=== PATIENT | female | born 1980 | race Caucasian/White ===

== ENCOUNTER 2017-05-22 13:33 | Inpatient (IN) | payer OTHER ==
[~2017-05-22] VITALS: Ht 157.5 cm; Wt 110.7 kg
[~2017-05-22 13:33] MED LIST: ALLEGRA30 MG; ASPIRIN325 PO; ASPIRIN81 M2; BIRTH CONTROL; CARVEDILOL12.5 MG PO; LIPITOR20 MG; MULTIVITAMINS PO; NITROSTAT0.4 MG SL; PLAVIX 75 MG TA75 MG PO; ZOLOFT 50 MG TA50 M1
[2017-05-22 13:41] VITALS: BP 150/76
[2017-05-22 14:15] LABS: ABSOLUTE BASOPHILS 0.1 thou/uL (0.0-0.2); ABSOLUTE EOSINOPHILS 0.2 thou/uL (0.0-0.7); ABSOLUTE LYMPHOCYTES 1.9 thou/uL (0.8-5.3); ABSOLUTE MONOCYTES 0.2 thou/uL (0.0-1.2); ABSOLUTE NEUTROPHILS 6.3 thou/uL (1.6-8.1); BASOPHILS 0.7 %; EOSINOPHILS 2.2 %; HEMATOCRIT 39.7 % (37.0-47.0); HEMOGLOBIN 13.5 gm/dL (12.0-15.0); LYMPHOCYTES 21.7 %; MCH 29.9 pg (26.0-34.0); MCHC 33.9 g/dL (28.0-37.0); MONOCYTES 2.8 %; MPV 7.6 fl. (7.2-11.1); NUCLEATED RBCS 0 /100WBC; PLATELET COUNT* 212 thou/uL (150-400); POLYS 72.6 %; RBC 4.51 mil/uL (4.20-5.00); RDW-CV 13.7 % (10.5-14.5); WBC 8.6 thou/uL (4.0-11.0)
[2017-05-22 14:25] LABS: CALCIUM 8.8 mg/dL (8.5-10.1); CREATININE 0.8 mg/dL (0.6-1.3)
[2017-05-22 14:29] LABS: ALBUMIN 3.5 g/dL (3.4-5.0); TOTAL BILIRUBIN 0.4 mg/dL (<0.1-1.0); TOTAL PROTEIN 7.2 g/dL (6.4-8.2)
[2017-05-22 14:34] LABS: SALICYLATE < 2.8 mg/dL (2.8-20.0)
[2017-05-22 14:35] LABS: ACETAMINOPHEN < 2 ug/mL (10-30); ALCOHOL < 10 mg/dL (<10)
[2017-05-22 14:36] LABS: MAGNESIUM 1.5 mg/dL (1.8-2.4); PHOSPHORUS* 3.4 mg/dL (2.5-4.9)
[2017-05-22 14:57] LABS: URINE BILIRUBIN NEGATIVE (Negative); URINE BLOOD NEGATIVE (Negative); URINE CLARITY CLEAR; URINE COLOR YELLOW; URINE GLUCOSE-RANDOM NEGATIVE (Negative); URINE KETONES NEGATIVE (Negative); URINE LEUKOCYTES-REFLEX NEGATIVE (Negative); URINE NITRITE-REFLEX NEGATIVE (Negative); URINE PROTEIN TRACE (Negative); URINE SPECIFIC GRAVITY 1.015 (1.005-1.030); URINE UROBILINOGEN 0.2 E.U./dl (0.2-1.0)
[2017-05-22 15:07] LABS: AMP/METHAMP Negative (Negative); BARBITURATES Negative (Negative); BENZODIAZEPINES POSITIVE (Negative); COCAINE Negative (Negative); METHADONE Negative (Negative); OPIATES Negative (Negative); PCP Negative (Negative); THC Negative (Negative)
[2017-05-22 16:15] VITALS: BP 131/88
[2017-05-22 16:30] VITALS: BP 138/87
[2017-05-22 17:59] VITALS: BP 136/94
[2017-05-22 20:00] VITALS: BP 127/83
[2017-05-22 22:00] VITALS: BP 116/71
[2017-05-23] VITALS (9 sets, daily range): BP systolic 101–136; BP diastolic 52–83
[2017-05-23 03:45] LABS: HEMATOCRIT 35.6 % (37.0-47.0); MCH 29.9 pg (26.0-34.0); MCHC 33.7 g/dL (28.0-37.0); MCV 88.8 fL (80.0-100.0); MPV 7.6 fl. (7.2-11.1); RBC 4.01 mil/uL (4.20-5.00); RDW-CV 13.8 % (10.5-14.5)
[2017-05-24 05:58] VITALS: BP 115/74
[2017-05-24 08:30] VITALS: BP 112/57
--- NOTE | 2017-05-24 12:52 | EKG ---
[place] [address] ELECTROCARDIOGRAM REPORT Name: JULIEN AYALA Room: [address] ADM IN M.R.#: [id number] Admission: 05/22/17 Attend Phys: Casi Alejandre Discharge: Date of : 76 Report #: [id number] THIS REPORT FOR: //name// [facility] ED Test Date: 2017-05-22 Test Time: 13:55:40 Pat Name: JULIEN AYALA Department: Room: 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1980 Requested By: Brooks Garcia Order Number: [id number] MD: Randy Gleason Measurements Intervals [place] Rate: 116 P: 52 VT: 143 QRS: -32 QRSD: 91 T: 41 QT: 323 QTc: 449 Interpretive Statements Sinus tachycardia RSR' in V1 or V2, probably normal variant Inferior infarct, old Consider anterior infarct Compared to ECG 06/19/2012 10:08:03 RSR' in V1 or V2 now present Sinus rhythm no longer present Myocardial infarct finding still present Electronically Signed On 05-24-2017 12:52:16 [employer]IMINAL JUSTICE DEPARTMENT CHAIR by Randy Gleason [email or web address] <ELECTRONICALLY SIGNED> By: Randy Gleason MD, FACC 05/24/17 1252 1355 1355 Randy Gleason MD, FACC /EPI
--- NOTE | 2017-05-24 12:52 | EKG ---
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1980 Requested By: Julio Cesar Khan Order Number: [id number] Darvin MD: Randy Gleason Measurements Intervals [place] Rate: 110 P: 47 CO: 144 QRS: -32 QRSD: 91 T: 42 QT: 341 QTc: 462 Interpretive Statements Sinus tachycardia Inferior infarct, old Anterior infarct, old Baseline wander in lead(s) I,II,aVR,V1,V4,V5,V6 Compared to ECG 06/19/2012 10:08:03 Sinus rhythm no longer present Myocardial infarct finding still present Electronically Signed On 05-24-2017 12:52:00 PLASTIC PROCESS TECHNICIAN by Randy Gleason [email or web address] <ELECTRONICALLY SIGNED> By: Randy Gleason MD, FACC 05/24/17 1252 1352 1352 Randy Gleason MD, FAC /EPI
[2017-05-24 16:30] VITALS: BP 146/93
[2017-05-24 20:05] VITALS: BP 146/93
== END 2017-05-24 19:57 | disposition short-term general hospital (02) | DRG 918 ==
LOC: M.ERS 13:33 → M.TBA-ER 15:42 → M.2W 15:42 → M.ICU 16:02 → M.2W 05-23 10:15
PROVIDERS: Emergency Medicine Emergency Medical Services; ADMIT Internal Medicine
DX: T42.4X2A Poisoning by benzodiazepines, intentional self-harm, initial encounter (principal); T43.222A Poisoning by selective serotonin reuptake inhibitors, intentional self-harm, initial encounter; I45.81 Long QT syndrome; E83.42 Hypomagnesemia; F32.9 Major depressive disorder, single episode, unspecified; Y92.89 Other specified places as the place of occurrence of the external cause; Z98.891 History of uterine scar from previous surgery; I25.2 Old myocardial infarction; Z91.018 Allergy to other foods

== ENCOUNTER 2017-07-08 07:13 | Emergency (ER) | payer OTHER ==
[~2017-07-08] VITALS: Ht 157.5 cm; Wt 108.9 kg
[2017-07-08] MEDS ORDERED: SERTRALINE HCL50 MG PO (07:21)
[2017-07-08] MEDS ORDERED: BUSPIRONE HCL10 MG PO (07:21)
[2017-07-08 07:36] LABS: ABSOLUTE BASOPHILS 0.1 thou/uL (0.0-0.2); ABSOLUTE EOSINOPHILS 0.4 thou/uL (0.0-0.7); ABSOLUTE LYMPHOCYTES 1.9 thou/uL (0.8-5.3); ABSOLUTE MONOCYTES 0.3 thou/uL (0.0-1.2); ABSOLUTE NEUTROPHILS 5.9 thou/uL (1.6-8.1); BASOPHILS 0.9 %; EOSINOPHILS 5.1 %; HEMATOCRIT 40.6 % (37.0-47.0); HEMOGLOBIN 13.7 gm/dL (12.0-15.0); LYMPHOCYTES 22.3 %; MCH 29.7 pg (26.0-34.0); MCHC 33.7 g/dL (28.0-37.0); MCV 88.1 fL (80.0-100.0); MONOCYTES 3.7 %; MPV 7.6 fl. (7.2-11.1); NUCLEATED RBCS 0 /100WBC; PLATELET COUNT* 228 thou/uL (150-400); RBC 4.61 mil/uL (4.20-5.00); RDW-CV 13.6 % (10.5-14.5); WBC 8.7 thou/uL (4.0-11.0)
[2017-07-08 07:47] LABS: ANION GAP 9 mmol/L (7-16); APTT 25.9 Seconds (25.0-31.3); BUN 11 mg/dL (7-18); CALCIUM 8.8 mg/dL (8.5-10.1); CHLORIDE 102 mmol/L (98-107); CO2 27 mmol/L (21-32); CREATININE 0.9 mg/dL (0.6-1.3); GLUCOSE 134 mg/dL (70-99); INR 1.1; POTASSIUM 3.7 mmol/L (3.5-5.1); PROTIME 10.5 Seconds (9.20-11.50); SODIUM 138 mmol/L (136-145)
[2017-07-08 08:08] LABS: ALBUMIN 3.7 g/dL (3.4-5.0); ALKALINE PHOSPHATASE 80 U/L (46-116); CK-MB MASS < 0.5 ng/mL (<0.5-3.6); LIPASE 128 U/L (73-393); MAGNESIUM 1.5 mg/dL (1.8-2.4); NT-PRO BRAIN NAT PEPTIDE 97 pg/mL (<300); SGOT 30 U/L (15-37); SGPT 52 U/L (30-65); TOTAL BILIRUBIN 0.4 mg/dL (<0.1-1.0); TOTAL PROTEIN 7.8 g/dL (6.4-8.2); TROPONIN-I LEVEL <0.06 ng/mL (<0.06)
[2017-07-08 08:35] VITALS: BP 127/76
--- NOTE | 2017-07-08 20:16 | EKG ---
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1980 Requested By: Gino Bolden Order Number: [id number] MD: Khanh Hernandez Measurements Intervals [place] Rate: 115 P: 48 RI: 148 QRS: -24 QRSD: 98 T: 49 QT: 323 QTc: 447 Interpretive Statements Sinus tachycardia premature ventricular complexes noted Inferior infarct, old Probable anterolateral infarct, old Compared to ECG 05/22/2017 13:55:40 Ventricular premature complex(es) now present Myocardial infarct finding still present Electronically Signed On 07-08-2017 20:16:34 FORESTRY LABORER by Khanh Hernandez [email or web address] <ELECTRONICALLY SIGNED> By: Khanh Hernandez MD, FACC 07/08/172015 6 6 Khanh Hernandez MD, [facility] /EPI
== END 2017-07-08 08:35 | disposition home or self-care (01) ==
LOC: M.ERS 07:13
PROVIDERS: Family Medicine
DX: R00.2 Palpitations (principal); F32.9 Major depressive disorder, single episode, unspecified; Z91.018 Allergy to other foods

== ENCOUNTER 2019-01-22 21:10 | Emergency (ER) | payer OTHER ==
[~2019-01-22] VITALS: Ht 157.5 cm; Wt 90.7 kg
[~2019-01-22 21:10] MED LIST changes: +BUSPIRONE HCL10 MG PO; +SERTRALINE HCL50 MG PO
[2019-01-22 21:38] LABS: URINE BLOOD 3+ (Negative); URINE CLARITY SL CLOUDY; URINE COLOR DARK YELLOW; URINE GLUCOSE-RANDOM TRACE (Negative); URINE KETONES TRACE (Negative); URINE LEUKOCYTES-REFLEX NEGATIVE (Negative); URINE NITRITE-REFLEX NEGATIVE (Negative); URINE PROTEIN 2+ (Negative); URINE SPECIFIC GRAVITY 1.025 (1.005-1.030); URINE UROBILINOGEN 0.2 E.U./dl (0.2-1.0)
[2019-01-22 21:39] LABS: URINE BILIRUBIN 1+ (Negative)
[2019-01-22 21:41] LABS: ICTOTEST (BILI CONFIRMATORY) Negative (Negative)
[2019-01-22 21:54] LABS: CASTS None Seen /LPF (None Seen); MUCUS 0-3 Light strn/LPF (None Seen); SQUAMOUS >10 Many /LPF (0-3)
[2019-01-22 21:55] LABS: CRYSTALS None Seen /LPF (None Seen); URINE RBC >20 Many /HPF (0-2); URINE WBC-REFLEX 6-15 Few /HPF (0-5)
[2019-01-22 22:06] LABS: ABSOLUTE BASOPHILS 0.1 thou/uL (0.0-0.2); ABSOLUTE EOSINOPHILS 0.3 thou/uL (0.0-0.7); ABSOLUTE LYMPHOCYTES 1.6 thou/uL (0.8-5.3); ABSOLUTE MONOCYTES 0.5 thou/uL (0.0-1.2); ABSOLUTE NEUTROPHILS 6.6 thou/uL (1.6-8.1); BASOPHILS 0.6 %; EOSINOPHILS 3.7 %; HEMATOCRIT 35.3 % (37.0-47.0); HEMOGLOBIN 11.8 gm/dL (12.0-15.0); LYMPHOCYTES 17.9 %; MCH 28.9 pg (26.0-34.0); MCHC 33.6 g/dL (28.0-37.0); MCV 86.2 fL (80.0-100.0); MONOCYTES 5.4 %; MPV 7.2 fl. (7.2-11.1); NUCLEATED RBCS 0 /100WBC; PLATELET COUNT* 205 thou/uL (150-400); POLYS 72.4 %; RDW-CV 14.7 % (10.5-14.5); WBC 9.1 thou/uL (4.0-11.0)
[2019-01-22 22:11] LABS: CALCIUM 8.9 mg/dL (8.5-10.1); POTASSIUM 3.9 mmol/L (3.5-5.1)
[2019-01-22 22:15] LABS: ALBUMIN 3.3 g/dL (3.4-5.0); TOTAL BILIRUBIN 0.5 mg/dL (<0.1-1.0); TOTAL PROTEIN 7.3 g/dL (6.4-8.2)
[2019-01-22] MEDS ORDERED: IBUPROFEN 800800 MG PO (23:57)
[2019-01-22] MEDS ORDERED: KEFLEX500 M1 PO (23:57)
[2019-01-22] MEDS ORDERED: NORCO 5-325 TA1 EAC1 PO (23:57)
[2019-01-23 00:12] VITALS: BP 132/84
== END 2019-01-23 00:14 | disposition home or self-care (01) ==
LOC: M.ERS 21:10
PROVIDERS: Personal Emergency Response Attendant
DX: L03.311 Cellulitis of abdominal wall (principal); R59.0 Localized enlarged lymph nodes; F32.9 Major depressive disorder, single episode, unspecified; K58.9 Irritable bowel syndrome, unspecified; Z98.890 Other specified postprocedural states

== ENCOUNTER 2019-10-29 14:44 | Emergency (ER) | payer OTHER ==
[~2019-10-29] VITALS: Ht 157.5 cm; Wt 106.6 kg
[~2019-10-29 14:44] MED LIST changes: +IBUPROFEN 800800 MG PO; +KEFLEX500 M1 PO; +NORCO 5-325 TA1 EAC1 PO
[2019-10-29 16:26] LABS: ABSOLUTE EOSINOPHILS 0.3 thou/uL (0.0-0.7); ABSOLUTE LYMPHOCYTES 2.1 thou/uL (0.8-5.3); ABSOLUTE MONOCYTES 0.1 thou/uL (0.0-1.2); ABSOLUTE NEUTROPHILS 5.6 thou/uL (1.6-8.1); BASOPHILS 0.3 %; HEMATOCRIT 38.5 % (37.0-47.0); HEMOGLOBIN 13.1 gm/dL (12.0-15.0); LYMPHOCYTES 25.4 %; MCH 29.3 pg (26.0-34.0); MCHC 34.1 g/dL (28.0-37.0); MCV 85.9 fL (80.0-100.0); MONOCYTES 1.4 %; MPV 7.5 fl. (7.2-11.1); NUCLEATED RBCS 0 /100WBC; PLATELET COUNT* 232 thou/uL (150-400); POLYS 68.9 %; RBC 4.49 mil/uL (4.20-5.00); RDW-CV 14.6 % (10.5-14.5); WBC 8.2 thou/uL (4.0-11.0)
[2019-10-29 16:35] LABS: CALCIUM 9.5 mg/dL (8.5-10.1); CREATININE 0.8 mg/dL (0.6-1.3)
[2019-10-29 16:39] LABS: ALBUMIN 3.5 g/dL (3.4-5.0); TOTAL BILIRUBIN 0.3 mg/dL (<0.1-1.0); TOTAL PROTEIN 7.8 g/dL (6.4-8.2)
[2019-10-29] MEDS ORDERED: VISTARIL 25 MG25 M1 PO (17:11)
[2019-10-29 17:31] VITALS: BP 135/71
--- NOTE | 2019-10-30 15:25 | EKG ---
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1980 Requested By: Taya Buck Order Number: [id number] MD: Khanh Hernandez Measurements Intervals [place] Rate: 104 P: 57 NM: 144 QRS: -30 QRSD: 109 T: 53 QT: 349 QTc: 459 Interpretive Statements Sinus tachycardia Inferior infarct, old Anterior infarct, old Compared to ECG 07/08/2017 07:17:23 Q waves now present Ventricular premature complex(es) no longer present Myocardial infarct finding still present Electronically Signed On 10-30-2019 15:24:29 CDT by Khanh Hernandez [email or web address] <ELECTRONICALLY SIGNED> By: Khanh Hernandez MD, [facility] 10/30/19 1524 1449 1449 Khanh Hernandez MD, [facility] /EPI
== END 2019-10-29 17:32 | disposition home or self-care (01) ==
LOC: M.ERS 14:44
PROVIDERS: Physician Assistant
DX: R00.2 Palpitations (principal); F32.9 Major depressive disorder, single episode, unspecified; I25.2 Old myocardial infarction; R61 Generalized hyperhidrosis; Z91.018 Allergy to other foods